=== PATIENT | male | born 1980 | race Two or more races ===

== ENCOUNTER 2020-07-24 13:08 | Emergency (ER) | payer OTHER ==
[~2020-07-24] VITALS: Ht 177.8 cm; Wt 90.7 kg
[2020-07-24] MEDS ORDERED: KETO10TA2 PO (15:07)
== END 2020-07-24 15:15 | disposition home or self-care (01) ==
LOC: ER 13:08
DX: S60.222A Contusion of left hand, initial encounter (principal); S90.01XA Contusion of right ankle, initial encounter; W18.09XA Striking against other object with subsequent fall, initial encounter; Y93.E9 Activity, other interior property and clothing maintenance; Y92.098 Other place in other non-institutional residence as the place of occurrence of the external cause; Y99.8 Other external cause status